=== PATIENT | female | born 1990 | race Caucasian/White ===

== ENCOUNTER 2024-09-29 08:43 | Emergency (ER) | payer SELFPAY ==
[2024-09-29 09:00] VITALS: BP 120/82; PULSE 60; RESP 18; TEMP 36.9; O2SAT 97; BMI 18.6
[2024-09-29 11:19] LABS: Add Manual Diff / Slide Review NO; Basophils Absolute Auto 0 /uL (0-100); Basophils Percent Auto 0.3 % (0-2); Eosinophils Absolute Auto 0 /uL (0-450); Eosinophils Percent Auto 0.5 % (2-4); Hematocrit 45.9 % (36-46); Hemoglobin 15.6 g/dL (12.0-16.0); Lymphocytes Absolute Auto 1900 /uL (1100-4500); Lymphocytes Percent Auto 21.7 % (25-40); Mean Corpuscular Hemoglobin 32.5 PG (26-34); Mean Corpuscular Volume 95.6 fL (80-100); Monocytes Absolute Auto 500 /uL (0-900); Monocytes Percent Auto 5.5 % (3-14); Neutrophils Absolute Auto 6500 /uL (1500-7000); Platelet Count 473 X10^3/uL (150-400); Red Cell Distribution Width 14.5 % (11.6-14.8)
[2024-09-29 11:28] LABS: Ethanol (ETOH) < 10 mg/dL
[2024-09-29 11:29] LABS: Alanine Aminotransferase 17 IU/L (<35); Albumin 4.7 g/dL (3.5-5.0); Albumin Globulin Ratio 1.5 (1.0-2.8); Alkaline Phosphatase 79 U/L (38-126); Aspartate Aminotransferase 32 IU/L (14-36); BUN Creatinine Ratio 17.6 (6-22); Bilirubin Total 0.6 mg/dL (0.2-1.3); Blood Urea Nitrogen 12 mg/dL (7-17); Calcium 8.9 mg/dL (8.4-10.2); Carbon Dioxide 29 mmol/L (22-32); Chloride 101 mmol/L (98-107); Estimated Glomerular Filt Rate > 60 mL/min (>60); Globulin 3.2 g/dL (1.7-4.1); Glucose 108 mg/dL (70-100); HEMOLYSIS < 15 (0-50); Potassium 4.1 mmol/L (3.4-5.1); Sodium 139 mmol/L (137-145); Total Protein 7.9 g/dL (6.3-8.2)
[2024-09-29 11:30] LABS: Appearance Urine UA CLEAR; Bilirubin Urine UA 2+ (NEGATIVE); Color Urine UA YELLOW; Glucose Urine UA NEGATIVE (Negative); Ketones Urine UA TRACE (NEGATIVE); Leukocyte Esterase Urine UA NEGATIVE (NEGATIVE); Nitrite Urine UA NEGATIVE (Negative); Occult Blood Urine UA NEGATIVE (Negative); Protein Urine UA 1+ (Negative)
[2024-09-29 11:35] LABS: Ur Creatinine Normal (Normal); Ur Specific Gravity Normal (Normal); Urine pH Normal (Normal)
[2024-09-29 11:36] LABS: UR Morphine/Opiate cutoff 300 Negative (Negative); Urine Amphetamines Negative (Negative); Urine Barbiturates Negative (Negative); Urine Benzodiazepines Positive (Negative); Urine Cocaine Negative (Negative); Urine MDMA Positive (Negative); Urine Methadone Negative (Negative); Urine Methamphetamines Negative (Negative); Urine Oxycodone Negative (Negative); Urine Phencyclidine Negative (Negative); Urine Tetrahydrocannabinol Negative (Negative); Urine Tricyclic Antidepressant Negative (Negative)
[2024-09-29 11:37] LABS: COVID19 -Nasal RAPID Negative (Negative)
[2024-09-29 11:46] LABS: Ictotest Urine Positive (Negative); Urine Volume Low Vol <10mL (spun)
[2024-09-29 11:47] LABS: Bacteria Urine None Seen; Culture Indicated Urine Cult Not Indicated; Mucus Urine 1+ (Negative); RBC Urine 0-1/HPF (0-5/HPF); Squamous Epithelial Cell Urine 0-1 /HPF (0-5/HPF); WBC Urine 0-1/HPF (0-5/HPF)
[2024-09-29 12:33] VITALS: BP 130/81; PULSE 47; O2SAT 98
[2024-09-29 12:49] VITALS: BP 124/83; PULSE 52; O2SAT 98
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
[2024-09-29 13:00] VITALS: BP 118/60; PULSE 68; O2SAT 98
[2024-09-29] MEDS: LORazepam 0.5 MG TABLET 1 MG PO (13:26)
[2024-09-29] MEDS: ONDANSETRON 4 MG ODT SL (13:26)
[2024-09-29 13:30] VITALS: BP 123/70; PULSE 53; O2SAT 98
--- NOTE | 2024-09-29 13:47 | CM.SWNOTE ---
ED LICENSED APPRAISER Note Patient is 34 y/o female who presents to ED due to concern for Kratom and Klonapin withdrawals. It is reported that patient's last Kratom use was last night and patient last used Klonapin 4 days ago. Patient presents with chills, N/V, body aches, feeling like skin crawling and overall discomfort. Patient does not have current PCP or insurance at this time. Patient's toxicology is positive for Ecstasy and Benzodiazepines. LICENSED APPRAISER reviews patient with ED provider and RN, it is reported that patient is not interested in detox or seeking inpatient treatment at this time. Patient presents with her mother and they are seeking medication to address patient's withdrawal symptoms. LICENSED APPRAISER enters room to meet with patient, present in room is patient's mother. Patient gives consent for mother to be present. Patient presents as A/Ox4, patient presents with discomfort and shaking. Patient confirms that she is not seeking detox, LICENSED APPRAISER offers outpatient [facility] resources and encourages patient to enroll in state medicaid insurance. LICENSED APPRAISER provides resources and contact information. ED provider to provide patient with Zofran and low dose Ativan managed by patient's mother to manage symptoms. Plan: patient to d/c to home with mother upon medical clearance with rx provided. Patient to seek insurance and establish with PCP. TIN Glez
== END 2024-09-29 13:50 | disposition home or self-care (01) ==
PROVIDERS: Emergency Provider Emergency Medicine
DX: F13.239 Sedative, hypnotic or anxiolytic dependence with withdrawal, unspecified (principal); Z11.52 Encounter for screening for COVID-19
CPT/HCPCS: 36415; 80053; 80305; 80320; 81001; 85025; 87635; 99283